=== PATIENT | female | born 1970 | race Hispanic/Latino ===

== ENCOUNTER 2019-07-21 09:57 | Day surgery (SDC) | payer BC ==
[2019-07-18 14:22] LABS: Absolute Lymphocytes (CBC) 3.1 K/uL (0.7-4.9); Basophils % 0.8 % (0-1.3); Hematocrit 35.7 % (36.0-45.0); Lymphocytes % 32.5 % (15.3-44.8); MPV 11.2 fL (7.6-11.3); RBC Red Blood Cell Count 4.12 M/uL (3.86-4.86)
[2019-07-18 14:28] LABS: Urine Appearance CLEAR; Urine Bilirubin NEGATIVE (NEG); Urine Blood NEGATIVE (NEG); Urine Color YELLOW; Urine Glucose NEGATIVE (NEG); Urine Protein NEGATIVE (NEG); Urine Urobilinogen 0.2 mg/dL (0.2-1.0); Urine pH 5.5 (5.0-7.0)
[2019-07-18 15:28] LABS: Urine Microscopic Reflex NO UMIC
[2019-07-21] MEDS ORDERED: SCOPOLAMINE HYDROBROMIDE PATCH TD ONE (10:31)
[2019-07-21] MEDS ORDERED: Ringers Lactate 1,000 ML IV ONE ×2 (10:32→13:13)
[2019-07-21] MEDS ORDERED: CEFAZOLIN/SWI 1gm 1 GM/10 ML SYR ONE (10:35)
[2019-07-21] MEDS: CEFAZOLIN/SWI 2gm 2 GM/20 ML SYR ONE ×3 (11:07→13:45)
[2019-07-21] MEDS ORDERED: propofoL 200 MG/20 ML VIAL IV ONE (12:12)
[2019-07-21] MEDS ORDERED: LIDOCAINE 1% MPF 5 ML VIAL ONE (12:12)
[2019-07-21] MEDS ORDERED: NS 0.9% VIAL 10 ML ONE (12:12)
[2019-07-21] MEDS ORDERED: FENTANYL CITR 250 MCG/5 ML ONE (12:12)
[2019-07-21] MEDS ORDERED: MIDAZOLAM HCL 2 MG/2 ML INJ ONE ×2 (12:12→16:54)
[2019-07-21] MEDS ORDERED: VECURONIUM 10 MG/VIAL IV ONE (12:13)
[2019-07-21] MEDS ORDERED: BUPIVACAINE 0.25% PF 30 ML VIAL ONE (13:13)
[2019-07-21] MEDS ORDERED: dexAMETHasone 10 MG/ML VIAL ONE (13:28)
[2019-07-21] MEDS ORDERED: ONDANSETRON 4 MG/2 ML VIAL ONE (14:02)
[2019-07-21] MEDS: Ringers Lactate 1,000 ML IV ONE ×3 (14:33→16:36)
[2019-07-21] MEDS ORDERED: KETOROLAC 30 MG/ML INJ ONE (16:06)
[2019-07-21] MEDS ORDERED: NEOSTIGMINE 1 MG/ML -5 ML ONE ×2 (16:22→16:43)
[2019-07-21] MEDS ORDERED: GLYCOPYRROLATE 0.2 MG/ML SYR ONE ×2 (16:23→16:44)
[2019-07-21] MEDS: HYDROMORPHONE HCL 1 MG/ML INJ ONE ×2 (16:47→17:58)
[2019-07-21] MEDS ORDERED: PROMETHAZINE INJ 25 MG/ML AMP ONE (16:50)
[2019-07-21 18:01] VITALS: TEMP 98.2
[2019-07-21] MEDS ORDERED: HYDROCODONE/APAP 5/325 MG TAB ONE (18:29)
[2019-07-21] MEDS ORDERED: NA CHLORIDE 0.9% 500 ML ONE (19:41)
[2019-07-21 20:04] VITALS: BP 152/82; O2SAT 97
--- NOTE | 2019-07-22 08:27 | OP ---
Date of Procedure: 07/21/2019 Surgeon: Jamia Main MD Water Systems Designer: Surendra Villegas, office services assistant. Preoperative Diagnoses: Menorrhagia (abnormal uterine bleeding, oligoovulation/anovulation), iron-de ficiency anemia, pelvic pain, and dysmenorrhea. Postoperative Diagnoses: Menorrhagia (abnormal uterine bleeding, oligoovulation/anovulation), iron-d eficiency anemia, pelvic pain, and dysmenorrhea. Procedures Performed: Total laparoscopic hysterectomy, bilateral salpingectomy, attachment of the ri ght uterosacral to the vaginal cuff. Anesthesia: General endotracheal. Estimated Blood Loss: Minimal. Complications: No complications. Drains: No drains. Condition: Stable. Indications: The patient is a 49-year-old referred to me by Dr. Norris for heavy bleeding and all the above mentioned preoperative diagnoses. She was investigated her endometrial sampling, was negative for atypia or malignancy. She was offered all the different options and alternatives of the medical management with Depo, IUD, and endometrial ablation with laparoscopy to look for endometriosis and r emoval if seen, hysterectomy, bilateral salpingo-oophorectomy perfectly. After considering the benef its and risks of all the procedures, the patient desired to proceed with hysterectomy with bilateral salpingectomy. She has not wanted to loose her ovaries and there was extensive endometriosis noted t hat was an indication from. Description Of Procedure: She was consented and taken to the OR. 3 g of Ancef were given according to ACOG guidelines for preoperative antibiotics for hysterectomy. She was placed in a supine fashion on the operating table. General anesthesia given, placed in dorsal lithotomy position using Leonardo s tirrups. Pelvic exam performed after checking the positioning and tucking arms by the side. SCDs we re started. A time-out was done. Patient was then prepped and draped in a sterile fashion abdomen, vulva, vagina, and perineum. A large VCare was introduced. Reynolds was placed. This area was draped. 1 cm infraumbilical incision made with a scalpel using open laparoscopy technique. Fascia was incise d, tagged with sutures. Peritoneum entered bluntly, S retractors placed, and insufflated. The oment al adhesions above the level of the umbilicus were seen, but not below. The patient was placed in Tr endelenburg and 110 mm suprapubic and two 5 mm left and right lower quadrant ports were placed under direct vision after injecting the skin and the fascia with Marcaine. After general survey of the peritoneal cavity, there was no evidence of any endometriosis. However, there were appendiceal adhesions to the right lower quadrant and at the level of the infundibulopelvi c ligament making it difficult for the retraction of the appendix and the cecum with cecal adhesions as well, so cecal adhesions were taken down by identifying the lateral wall, pelvic brim at the urete r. The location of the ureter was external iliac and staying superior and lateral to this. The adhe sions were taken down with sharp and blunt dissection with scissors and with LigaSure. The appendix was retracted superiorly and the adhesions of the appendix were taken down as well. No mass was iden tified. No endometriosis was identified on the appendix, although it appeared to be slightly erythem atous and enlarged. There was no clear indication of an acute appendicitis or mass indicating append ectomy at this time. This was retracted superiorly and left in place. Ureters were identified from the pelvic brim to the ureteric tunnel on the right side obvious on the left side vague due to the fat on the pelvic sidewall. However, the ureter was identified at the lev el of the pelvic brim. She had no anatomic distortions or endometriosis at the level of the tunnel. So, all these were well visualized. A small area of possible endometriosis in the peritoneum close to the uterosacral and more towards the serosa of the uterus. Anteriorly, a small amount of scar seen, but no clear evidence of endometriosis. Hysterectomy was started by taking down the utero-ovarian ligament. The left tube was removed. The round ligament was also taken down on the left side. Then, the peritoneum opened anteriorly and post eriorly, skeletonizing the vessels taking down the broad ligament and the bladder flap was raised all the way on the opposite side and bladder dissected inferiorly. On the right side, the same dissecti on was performed taking down the tube and utero-ovarian ligament, round ligament, broad ligament take n down. The anterior and posterior leaves of broad ligament were opened up before skeletonizing the vessels. The broad anterior peritoneal incision connected to raise the bladder flap. Bladder was di ssected inferiorly. The vaginal manipulator cup was visualized and the anterior vaginal wall. Then, vesicovaginal space was entered with the help of the LigaSure as well as the monopolar hook blade and bladder and dissected down inferiorly at least a centimeter and half inferior to the apex of the cuf f. Then, vessels were isolated. The cardinal ligament was taken down as well with bipolar basket ti p and then the LigaSure first on the right side then on the left side and a circumferential colpotomy with a monopolar hook blade. The specimen was pulled out through the vagina with a tight fit and sarah d to be gently removed by holding the posterior aspect of the uterine wall with the Allis clamps and then gently pulled it out. The occlusion bulb was placed in the vagina for pneumoperitoneum maintena nce. The vaginal cuff was closed with the help of a running 2-0 V-Loc suture starting from the right and i n 2 layers. The vaginal epithelium was closed with some amount of connective tissue from the right t o the left and then the rectovaginal septum and anterior pelvic fascia were all closed to bring the c uff wall together again with the V-Loc and ending on the right side, 2 other sutures were placed to p revent recoil. The uterosacral appeared to be detached on the right side. After the hysterectomy, sutures of 2-0 PD S was placed from the distal uterosacral to the cuff and reattached with a byjyzc-tc-pezee. On the l eft side, stayed well attached and there was excellent support at the level of the vaginal apex and t here was no reason for concern on the ureter as this was much further way and lateral and was able to be well visualized and there was excellent peristalsis without evidence of electrical, mechanical, o r thermal injury to the ureter. Thorough irrigation and suction were performed. The distal part of the right tube was also removed with the LigaSure. Both pedicles and ovaries were normal, as the pat ient desires ovaries were left intact. The trocars were removed under direct vision, injected with M arcaine at the fascia and the skin. Pneumoperitoneum taken down, Quincy removed. Fascia closed with the tagged 0 Vicryl sutures, tied to each other in a jhkwnd-qo-awbrz fashion and all skin incisions closed with the help of interrupted 4-0 Vicryl and Steri-Strips placed. The vaginal bulb and Reynolds w ere removed. Instrument, needle, and sponge counts were correct at the case. EBL minimal. The winsome ent was recovered from anesthesia in the OR and taken to PACU in stable condition. AWAIS/YOHANA Voice ID: [id number] Report ID: [id number]
== END 2019-07-21 20:18 | disposition home or self-care (01) ==
LOC: OR 09:57
PROVIDERS: ATTEND Obstetrics & Gynecology
PROC: 0UT74ZZ Resection of Bilateral Fallopian Tubes, Percutaneous Endoscopic Approach (ICD-10-PCS; 2019-07-21)
PROC: 0UT94ZZ Resection of Uterus, Percutaneous Endoscopic Approach (ICD-10-PCS; principal; 2019-07-21 11:30)
DX: N92.1 Excessive and frequent menstruation with irregular cycle (principal); D50.0 Iron deficiency anemia secondary to blood loss (chronic); R10.2 Pelvic and perineal pain; N94.6 Dysmenorrhea, unspecified
CPT/HCPCS: 85025; 36415; 86900; 86850; 81025; 86901; 88307; 81003; 58571; J2704; J2550; J2250; J3010; J1100; J1170; J2710 ×2; J0690 ×2; J7120 ×3; J7040; J2405

== ENCOUNTER 2022-12-27 09:23 | Emergency (ER) | payer BC ==
--- OUTSIDE RECORDS SUMMARY | 2022-12-27 09:27 | XMS REPORT | Continuity of Care Document ---
:1970 Author Organization [facility] t Address [address] [place] [address] [id number] Care Team Providers Name Role Phone Pcp, Patient Does Not Have A Primary Care Physician +[phone] Nurse, Adc Pob Immunization Attending Clinician Unavailable Lion ZHAO, Satinder Banegas Attending Clinician Payers Payer Name Policy Type Policy Effective Date Expiration Date Sour ce Number BCBS OF [id number] 2020 [place] o f [facility] 00:00:00 [id number] [phone] [id number], [place] [address]RZD/POS Problems This patient has no known problems. Allergies, Adverse Reactions, Alerts This patient has no known allergies or adverse reactions. Social History Social Habit Start Date Stop Date Quantity Comments Source Sex Assigned At [birth year] [facility] 00:00:00 00:00:00 Medical Branch Medications This patient has no known medications. Immunizations Ordered Filled Immunization Date Status Comments Sourc e Immunization Name Name SARS-COV-2 COVID-19 2020-11-15 Completed Unive rsity of PFIZER VACCINE 00:00:00 [facility] SARS-COV-2 COVID-19 2020-10-22 Completed Unive rsity of PFIZER VACCINE 00:00:00 [place] [facility] Procedures Procedure Date / Time Performed Performing Clinician [facility] e SARS-COV-2 COVID-19 2020-11-15 19:24:40 [facility]IM Name Medical Branch (PFIZER) Plan of Care Planned Activity Planned Date Details Comments Source Future Scheduled 2021-03-13 [facility] (Season Ended) [code = Medic al Branch INFLUENZA VACCINE (Season Ended)] Future Scheduled 2018-02-01 Screening for [facility] Test 00:00:00 malignant neoplasm of Medica l Branch colon (procedure) [code = 619390057] Future Scheduled 2018-02-01 Screening for [facility] Test 00:00:00 malignant neoplasm of Medica l Branch colon (procedure) [code = [id number]] Future Scheduled 2018-02-01 Zoster Recom[facility]00 Vaccine (SHINGRIX) (1 Medica l Branch of 2) [code = Zoster Recombinant Vaccine (SHINGRIX) (1 of 2)] Future Scheduled 2018-02-01 Screening for occult Uni versity [facility] Test 00:00:00 blood in feces Medical Bran h (procedure) [code = [id number]] Future Scheduled 2018-02-01 Stool DNA-based [facility] Test 00:00:00 colorectal cancer Medical Br anch screening (procedure) [code = 932585088435517] Future Scheduled 2018-02-01 Flexible fiberoptic [facility]00 sigmoidoscopy Medical Branch (procedure) [code = 07143827] Future Scheduled 2008 Screening for [facility] Test 00:00:00 malignant neoplasm of Medica l Branch breast (procedure) [code = 129054768] Future Scheduled 1989-02-01 Screening for [facility] Test 00:00:00 malignant neoplasm of Medica l Branch cervix (procedure) [code = 071974727] Future Scheduled 1987-02-01 DTaP,Tdap,and Td [facility] Test 00:00:00 Vaccines (1 - Tdap) Medical Branch [code = DTaP,Tdap,and Td Vaccines (1 - Tdap)] Future Scheduled 1986-02-01 Hepatitis C screening [facility] [place] Test 00:00:00 (procedure) [code = Medical Branch [id number]] Future Scheduled 1980 Depression screening Uni [facility] Test 00:00:00 (procedure) [code = Medical Branch [id number]] Encounters Start End Encounter Admission Attending Care Care Encounter Source Date/Time Date/Time Type Type Clinicians Facility Department ID 2022-10-31 2022-10-31 Outpatient [facility] SFA [id number] 16:02:48 16:02:48 [id number] F David Results This patient has no known results.
[2022-12-27 10:03] LABS: SARS-CoV-2 Antigen Rapid Res Negative (Negative)
--- NOTE | 2022-12-27 10:18 | ER ---
Nurse's Notes [facility] Name: Missy Briseno Age: 52 yrs Sex: Female : 1970 Arrival Date: 12/27/2022 Time: : Bed 13 Private MD: Diagnosis: Streptococcal pharyngitis Presentation: 12/27 09:29 Chief complaint: Patient states: rash on face and neck that started Thursday, sore as6 throat that started last night, with congestion. Chief complaint:. Coronavirus screen: Vaccine status: Patient reports receiving the 2nd dose of the covid vaccine. Ebola Screen: Patient denies travel to an Ebola-affected area in the 21 days before illness onset. Initial Sepsis Screen: Does the patient meet any 2 criteria? No. Patient's initial sepsis screen is negative. Does the patient have a suspected source of infection? No. Patient's initial sepsis screen is negative. Risk Assessment: Do you want to hurt yourself or someone else? Patient reports no desire to harm self or others. Onset of symptoms was December 23, 2022. 09:29 Method Of Arrival: Ambulatory as6 09:29 Acuity: TOMER 3 as6 Triage Assessment: 09:35 General: Appears in no apparent distress. comfortable, Behavior is calm, cooperative, as6 appropriate for age. Pain: Complains of pain in abdomen. EENT: No deficits noted. Historical: - Allergies: 09:33 No Known Allergies; as6 - Home Meds: 09:33 atorvastatin 40 mg oral tablet once [Active]; Flonase Nasal 50 mcg [Active]; as6 - PMHx: 09:33 None; as6 - PSHx: 09:33 Total abdominal hysterectomy; as6 - Immunization history:: Adult Immunizations not up to date. - Social history:: Smoking status: Patient denies any tobacco usage or history of. Screenin:40 [facility] ED Fall Risk Assessment (Adult) History of falling in the last 3 months, ko1 including since admission No falls in past 3 months (0 pts) Confusion or Disorientation No (0 pts) Intoxicated or Sedated No (0 pts) Impaired Gait No (0 pts) Mobility Assist Device Used No (0 pt) Altered Elimination No (0 pt) Score/Fall Risk Level 0 - 2 = Low Risk Oriented to surroundings, Maintained a safe environment, Educated pt \T\ family on fall prevention, incl call for assistance when getting out of bed, Assessed \T\ reinforced patient's understanding of fall precautions, Provided non-skid footwear, Hourly rounding (assess needs \T\ fall precautionary measures) done, Used ambulatory aids as needed (educated on \T\ assisted with), Used gait belt as appropriate. Abuse screen: Denies threats or abuse. Denies injuries from another. Nutritional screening: No deficits noted. Tuberculosis screening: No symptoms or risk factors identified. Assessment: 09:40 Neuro: No deficits noted. Cardiovascular: No deficits noted. Respiratory: Airway is ko1 patent Respiratory effort is even, unlabored. GI: No deficits noted. : No deficits noted. EENT: Throat is reddened. Derm: No deficits noted. Musculoskeletal: No deficits noted. 09:45 Respiratory: Breath sounds are clear bilaterally. ko1 Vital Signs: 09:29 BP 140 / 85; Pulse 96; Resp 18; Temp 98.7(O); Pulse Ox 98% ; Weight 90.26 kg; Height 5 as6 ft. 6 in. ; 10:21 Pulse 92; Pulse Ox 98% ; ko1 09:29 Body Mass Index 32.12 (90.26 kg, 167.64 cm) as6 ED Course: 09:27 Patient arrived in ED. jj6 09:28 Lorena Rodríguez [facility]NP-C [facility]. kb 09:28 Derrick Vaughan MD is Attending Physician. kb 09:33 Triage completed. as6 09:36 Arm band placed on right wrist. Patient placed in an exam room, on a stretcher. as6 09:40 Patient has correct armband on for positive identification. Bed in low position. Call ko1 light in reach. Pulse ox on. NIBP on. 09:40 No provider procedures requiring assistance completed. ko1 09:44 Nat Judge, GEETHA is Primary Nurse. ko1 10:22 Patient did not have IV access during this emergency room visit. ko1 Administered Medications: No medications were administered Medication: 09:40 VIS not applicable for this client. ko1 Outcome: 10:18 Discharge ordered by . kb 10:21 Discharged to home ambulatory. ko1 10:21 Condition: stable 10:21 Discharge instructions given to patient, Instructed on discharge instructions, follow up and referral plans. medication usage, Demonstrated understanding of instructions, follow-up care, medications, Prescriptions given X 1. 10:23 Patient left the ED. ko1 Signatures: Lorena Rodríguez FNP-C FNP-Treasure Lozano6 Dario Lobo, RN RN as6 Nat Judge RN RN ko1
--- NOTE | 2022-12-27 10:18 | EDPHYS ---
Physician Documentation [facility] Name: Missy Briseno Age: 52 yrs Sex: Female : 1970 Arrival Date: 12/27/2022 Time: 09:23 Bed 13 Private MD: ED Physician Derrick Vaughan HPI: 12/27 10:21 This 52 yrs old Female presents to ER via Ambulatory with complaints of Rash, kb Sore Throat, Congestion, Cough. 10:23 The patient presents with sore throat. The patient describes throat pain as constant. kb Onset: The symptoms/episode began/occurred yesterday. Severity of symptoms: At their worst the symptoms were mild, moderate, in the emergency department the symptoms are unchanged. Modifying factors: The symptoms are alleviated by nothing, the symptoms are aggravated by swallowing, Patient's oral intake status: good. Associated signs and symptoms: Pertinent positives: Sore throat rash. The patient has not experienced similar symptoms in the past. The patient has not recently seen a physician. Historical: - Allergies: 09:33 No Known Allergies; as6 - Home Meds: 09:33 atorvastatin 40 mg oral tablet once [Active]; Flonase Nasal 50 mcg [Active]; as6 - PMHx: 09:33 None; as6 - PSHx: 09:33 Total abdominal hysterectomy; as6 - Immunization history:: Adult Immunizations not up to date. - Social history:: Smoking status: Patient denies any tobacco usage or history of. ROS: 10:23 Constitutional: Negative for fever, chills, and weight loss, Respiratory: Negative for kb shortness of breath, cough, wheezing, and pleuritic chest pain. 10:23 ENT: Positive for sore throat. 10:23 Skin: Positive for rash. 10:23 All other systems are negative. Exam: 10:23 Constitutional: This is a well developed, well nourished patient who is awake, alert, kb and in no acute distress. Head/Face: Normocephalic, atraumatic. Cardiovascular: Regular rate and rhythm with a normal S1 and S2. No gallops, murmurs, or rubs. No pulse deficits. Respiratory: Respirations even and unlabored. No increased work of breathing. Talking in full sentences Abdomen/GI: Soft, non-tender. No distention MS/ Extremity: Pulses equal, no cyanosis. Neurovascular intact. Full, normal range of motion. Neuro: Awake and alert, GCS 15, oriented to person, place, time, and situation. Moves all extremities. Normal gait. 10:23 ENT: Posterior pharynx: Airway: normal, no evidence of obstruction, Tonsils: with erythema, swelling, is not appreciated, erythema, that is mild, exudate, is not appreciated. 10:23 Skin: rash a moderate rash is noted, rash can be described as scarlatina, and is diffusely located. Vital Signs: 09:29 BP 140 / 85; Pulse 96; Resp 18; Temp 98.7(O); Pulse Ox 98% ; Weight 90.26 kg; Height 5 as6 ft. 6 in. ; 10:21 Pulse 92; Pulse Ox 98% ; ko1 09:29 Body Mass Index 32.12 (90.26 kg, 167.64 cm) as6 MDM: 09:28 Patient medically screened. kb 10:25 Differential diagnosis: strep, tonsillitis, pharyngitis, flu, covid. Data reviewed: vital signs, nurses notes. Counseling: I had a detailed discussion with the patient and/or guardian regarding: the historical points, exam findings, and any diagnostic results supporting the discharge/admit diagnosis, lab results, the need for outpatient follow up, a family practitioner, to return to the emergency department if symptoms worsen or persist or if there are any questions or concerns that arise at home. 12/27 09:34 Order name: Flu; Complete Time: 10:10 kb 12/27 09:34 Order name: SARS RAPID; Complete Time: 10:10 kb 12/27 09:34 Order name: Strep; Complete Time: 10:10 kb Administered Medications: No medications were administered Disposition: 14:23 Co-signature as Attending Physician, Derrick Vaughan MD I reviewed the patient's care rn provided by the Advanced Practice Provider and agree with the diagnosis and treatment plan. Disposition Summary: 12/27/22 10:18 Discharge Ordered Location: Home Condition: Stable Diagnosis - Streptococcal pharyngitis kb Followup: kb - With: Emergency Department - When: As needed - Reason: Worsening of condition Followup: kb - With: Private Physician - When: 2 - 3 days - Reason: Recheck today's complaints, Continuance of care, Re-evaluation by your physician Discharge Instructions: - Discharge Summary Sheet kb - Strep Throat, Adult, [id number] kb Forms: - Medication Reconciliation Form kb - Thank You Letter kb - Antibiotic Education kb - Prescription Opioid Use kb Prescriptions: - Augmentin 875-125 mg Oral Tablet - take 1 tablet by ORAL route every 12 hours for 10 days; 20 tablet; Refills: 0, kb Product Selection Permitted Signatures: Dispatcher [employer] EDLorena Woo, SAM-C SAM-Derrick Razo MD MD rn Slawson, Ashby, RN RN as6
[2022-12-27 10:32] VITALS: BP 140/85; TEMP 98.7; O2SAT 98
== END 2022-12-27 10:23 | disposition home or self-care (01) ==
LOC: ER 09:23
DX: J02.0 Streptococcal pharyngitis (principal); Z20.822 Contact with and (suspected) exposure to COVID-19
CPT/HCPCS: 36415; 87081; 87804; 87811; 99283